=== PATIENT | female | born 1955 | race Caucasian/White ===

== ENCOUNTER 2017-03-19 19:06 | Emergency (ER) | payer BC ==
[~2017-03-19] VITALS: Ht 167.6 cm; Wt 95.1 kg
[2017-03-19 19:25] VITALS: TEMP 37; Ht 167.6 cm; Wt 95.1 kg
[2017-03-19] MEDS ORDERED: ASPI81TA28 PO (20:03)
[2017-03-19] MEDS ORDERED: CYAN500T PO (20:03)
--- NOTE | 2017-03-19 20:55 | DIAGNOSTIC IMAGING REPORT ---
NASAL BONES MIN 3 VIEWS CLINICAL HISTORY: fall onto nose trauma COMPARISON STUDY: None FINDINGS: Nondisplaced fracture nasal bones. The maxillary spine appears to be intact. Major sinuses are clear. IMPRESSION: Nondisplaced fracture nasal bones. The above report was generated using voice recognition software. It may contain grammatical, syntax or spelling errors. Electronically signed by: Bari Dowd M.D. 03/19/2017 8:54 PM Dictated Date/Time: 03/19/2017 8:53 PM
[2017-03-19 21:27] VITALS: BP 146/68; PULSE 66; O2SAT 96
--- NOTE | 2017-03-20 16:09 | EMERGENCY ROOM VISIT NOTE ---
ED Visit Note First contact with patient: 20:00 Chief Complaint: Nasal pain. History of Present Illness: Ms. Jang is a 61-year-old female who ambulates into the ED accompanied by male friend complaining of nasal pain. Patient reports approximately one hour ago she was walking her dog. The dog then started chasing a groundhog. She attempted to stop this altercation and tripped and fell landing on her nose. She reports before the fall she had no lightheaded or dizziness, the time of the fall she did not have a loss of consciousness and since the fall she denies any abnormal neurological symptoms consistent with a head injury. Additionally she does report when she struck her nose on the ground she did hear a cracking sensation. The fall she reports she has not had any difficulty breathing through her nose and no nasal bleeding. Currently she is complaining of nasal pain. Her pain is located over both nasal bones. She has difficulty describing her pain. She rates her discomfort 6/10. The pain is nonradiating. The pain worsens with palpation. He is not identified any alleviating factors related to the pain. She has not taken any medications for pain prior to arrival at the hospital. When I questioned her about other injuries she reported she did not one anything else evaluated but her nose but I was able to identify that she has not had any headaches, dizziness, visual changes, hearing changes, difficulty speaking, difficulty swallowing, neck pain, back pain, chest pain, shortness of breath, abdominal pain, nausea/vomiting or extremity pain. Review of Systems: As noted above in history of present illness. At least body systems were reviewed and found to be negative as noted above. Past Medical History: Bronchitis, status post partial thyroidectomy and partial hysterectomy. Current Medications: Aspirin, vitamin B12. Allergies to Medications: Sulfa, tetracycline, doxycycline. Social History: Patient is not employed; she lives with her spouse and feels safe in her home environment; she denies tobacco and alcohol use. Physical Examination: Vital Signs: Date Time Temp Pulse Resp B/P (MAP) Pulse Ox O2 Delivery O2 Flow Rate FiO2 03/19/17 21:27 66 22 146/68 96 03/19/17 19:25 37.0 77 16 157/85 99 Room Air GENERAL: 61-year-old female in mild distress due to pain, nontoxic-appearing, afebrile and hemodynamically stable. NEUROLOGICAL: Awake, alert and oriented to person, place and time. Answering questions appropriately and following commands. Normal gait. Good hand eye coordination. Cranial nerves II through XII grossly intact. SKIN: Warm, dry and pink. Face: Superficial abrasions over the anterior aspect of the nose and small superficial abrasion to the left cheek. Right forearm: Superficial abrasions to the posterior elbow. Right hand: Superficial abrasions over the third and fourth posterior fingers at the distal phalanxes. Right knee: Superficial abrasion over the anterior knee. HEENT: Skull: Atraumatic and normocephalic. No raccoon's eyes or mohamud signs. No drainage from the nares or ears. Face: Superficial abrasions over the nose and left cheek; minimal bleeding of the nose. Nose shows some swelling over the distal aspect of the nasal bones but does not appear deformed. The nostrils are patent. Patient's request was not to evaluate any other facial structures. PERRLA. EOMI without nystagmus. Sclera white and conjunctiva pink. No malocclusion. Airway patent. Speech normal. Trachea midline. No jugular venous distention. Patient refused examination of other body parts. ED Course: Patient is assessed as noted above. Patient's medication list was reviewed. Patient was offered pain medication and refused. Nasal X-Rays: Were read by myself and the radiologist showing nondisplaced fractures of the nasal bones. After I reviewed patient's x-ray results I did ask if she would like us to clean her wounds and she approved. Her abrasions were cleaned with antibiotic soap and water and covered with a small amount of antibiotic ointment. Patient was educated about today's findings and instructed on her treatment plan ; she verbalizes understanding and agreement with this plan. Clinical Impression: Nasal fracture. Multiple soft tissue abrasions. Status post fall. Disposition: A shunt discharged home in stable condition accompanied by her ; prior to departure she was reassessed and subjectively reported she was feeling the same. Plan: Comfort measures, wound care and signs of infection, signs of head injury were all discussed with the patient. Patient was encouraged to follow-up with family physician for any signs of infection or ongoing swelling/deformity of the nose. Patient was encouraged to follow-up with ENT specialist or plastic surgery if she felt like there is nasal deformity after resolution of all her swelling. Patient was encouraged return ED for any signs of infection or any signs of head injury or any new/concerning symptoms.
== END 2017-03-19 21:28 | disposition home or self-care (01) ==
LOC: C.EDB 19:07 → C.EDD 21:28
DX: S02.2XXA Fracture of nasal bones, initial encounter for closed fracture (principal); T14.8 Other injury of unspecified body region; W01.0XXA Fall on same level from slipping, tripping and stumbling without subsequent striking against object, initial encounter; Y92.89 Other specified places as the place of occurrence of the external cause; Y93.K1 Activity, walking an animal; Z79.82 Long term (current) use of aspirin